=== PATIENT | female | born 1975 | race Asian ===

== ENCOUNTER → 2016-08-14 | Outpatient (CLI) | payer OTHER ==
--- NOTE | 2016-08-14 10:36 | REPMRS ---
Patient History The patient states she has not had a clinical breast exam in over a year. No known family history of cancer. Digital Mammo Screening Bilat: August 14, 2016 - Exam #: [id number] Bilateral CC and MLO view(s) were taken. Technologist: Asya Roldanologist FINDINGS: The breast tissue is extremely dense which could obscure a lesion on mammography. There is no evidence of cancer on this mammogram. ASSESSMENT: BI-RADS/ACR category 2 mammogram. Benign finding(s). Recommendation Routine screening mammogram of both breasts in 1 year (for women over age 40). This mammogram was interpreted with the aid of an FDA-approved computer-aided dectection system. Electronically Signed By: Christ Pruitt MD 08/14/16 [id number]
== END ==
LOC: M RAD 08:30
PROVIDERS: ATTEND Family Medicine
DX: Z12.31 Encounter for screening mammogram for malignant neoplasm of breast (principal)

== ENCOUNTER → 2016-09-28 | Outpatient (CLI) | payer OTHER ==
[~2016-09-28] MED LIST: LIDOCAINE 1% MDV 20ML VIAL As Ordered ONE
--- NOTE | 2016-09-28 17:52 | REP ---
ULTRASOUND GUIDED RIGHT SUPRACLAVICULAR LYMPH NODE BIOPSY: The procedure was performed under the direct supervision of Dr. Pruitt. The patient has a history of right supraclavicular lymphadenopathy seen on a previous CT scan dated 08/25/2016. The risks and benefits of the procedure were explained to the patient and informed consent was obtained. The right supraclavicular lymph node was localized using ultrasound guidance. The skin was prepped and draped in a sterile fashion. 1% Xylocaine was used as a local anesthetic. Using ultrasound guidance 8 fine needle aspirations were obtained using 25-gauge needles. The patient tolerated the procedure well and there were no immediate complications. After the appropriate amount of monitored convalescence the patient was discharged from the department. Reviewed by MAHNAZ Shen 09/29/2016 05:18 PEdited and Signed by Christ Pruitt MD 09/29/2016 05:20 P
--- NOTE | 2016-09-28 21:05 | REP ---
ULTRASOUND RIGHT SUPRACLAVICULAR REGION: Real-time sonographic evaluation of the right supraclavicular region performed prior to a scheduled fine needle aspiration. Hypoechoic nodule is seen measuring 2.0 x 1.3 x 2.1 cm. We will proceed with fine needle aspiration. Signed by Christ Pruitt MD 09/29/2016 05:23 P
== END ==
LOC: M RADPRO 12:46
PROVIDERS: ATTEND Surgery
DX: R59.9 Enlarged lymph nodes, unspecified (principal)

== ENCOUNTER → 2017-07-27 | Outpatient (CLI) | payer OTHER | LOC: M RAD 11:52 | DX: Z12.31 Encounter for screening mammogram for malignant neoplasm of breast (principal) ==